=== PATIENT | male | born 2000 | race Caucasian/White ===

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

== ENCOUNTER 2022-10-22 10:45 | Inpatient (IN) ==
[2022-10-22] MEDS ORDERED: NS 0.9% 1000 ml BAG 1,000 ML IV ONE ×3 (10:54→21:05)
[2022-10-22] MEDS ORDERED: Ondansetron 4 mg VIAL 2 MG/ML 2 ml VIAL IV ONE ×2 (11:40→21:21)
[2022-10-22 11:58] LABS: Venous Bicarbonate HCO3 26.4 mmol/L (24-28)
[2022-10-22 12:04] LABS: ABS Basophils 0.1 10^3/ul (0-0.2); ABS Eosinophils 0.1 10^3/ul (0-0.6); ABS Lymphocytes 2.8 10^3/ul (1.0-4.8); ABS Monocytes 0.6 10^3/ul (0-0.8); ABS Neutrophils 5.9 10^3/ul (1.5-7.7); Eosinophil % 1.4 %; Hematocrit 48 % (42-52); Hemoglobin 15.7 g/dL (14.0-18.0); Lymphocyte % 29.4 %; Mean Corpuscular HGB Conc 33 g/dL (31-36); Mean Corpuscular Hemoglobin 29 pg (27-31); Mean Corpuscular Volume 89 fL (80-94); Mean Platelet Volume 7.7 fL (7.4-10.4); Nucleated Red Blood Cells % 0.1; Platelet Count 495 10^3/uL (150-450); Red Blood Count 5.34 10^6 /uL (4.18-5.48); Red Cell Distribution Width 13 % (10-15); White Blood Count 9.5 10^3/uL (3.5-10.8)
[2022-10-22 12:25] LABS: Anion Gap 12 mmol/L (2-11); Blood Urea Nitrogen 19 mg/dL (6-24); CO2 Carbon Dioxide 26 mmol/L (22-32); Calcium 10.4 mg/dL (8.6-10.3); Chloride 101 mmol/L (101-111); Glucose 96 mg/dL (70-100); Lipase 12 U/L (11.0-82.0); Potassium 3.8 mmol/L (3.5-5.0); Sodium 139 mmol/L (135-145); eGFR CKD-EPI 132.5 (>60)
[2022-10-22] MEDS ORDERED: Prochlorperazine 5 mg/ml 2 ml VIAL (10 mg) IV ONE (12:26)
[2022-10-22] MEDS ORDERED: Metoclopramide 5 MG/ML VIAL (10 mg) IV ONE ×2 (15:02→20:35)
[2022-10-22] MEDS ORDERED: Iodixanol (CONTRAST) 320 MG/ML 100 ML SDV IV ONE (17:20)
[2022-10-22 19:41] LABS: Urine Appearance Clear; Urine Bilirubin Negative (Negative); Urine Blood Negative (Negative); Urine Color Straw; Urine Glucose 3+(>=500 mg/dL) (Negative); Urine Ketones 2+ (Negative); Urine Nitrite Negative (Negative); Urine Protein Negative (Negative); Urine Specific Gravity 1.043 (1.002-1.030); Urine Urobilinogen Negative (Negative)
[2022-10-22] MEDS ORDERED: Dextrose 50% Syringe 50 ml 25 GM/50 ML SYRINGE IV PUSH PRN ×2 (20:52→21:20)
[2022-10-22] MEDS ORDERED: Morphine 4 MG/ML VIAL (1 ml) IV ONE (21:04)
[2022-10-22 21:17] LABS: ALT 15 U/L (7-52); AST 15 U/L (13-39); Albumin 4.7 g/dL (3.2-5.2); Albumin/Globulin Ratio 1.6 (1-3); Alcohol, S < 13 mg/dL (<13); Alkaline Phosphatase 99 U/L (35-149); Indirect Bilirubin 0.9 mg/dL (0.3-1.0); Total Protein 7.7 g/dL (6.4-8.9)
[2022-10-22 21:45] LABS: Urine Benzodiazepine Screen None Detected (None Detect); Urine Cannabinoids Screen Presumptive Positive (None Detect); Urine Opiates Screen None Detected (None Detect)
[2022-10-22] MEDS ORDERED: Insulin GLARGINE 100 un/ml 10 ml VIAL SUBCUT SCH (22:00)
[2022-10-22] MEDS ORDERED: Scopolamine 1 mg/72hr PATCH TRANSDERM SCH (22:00)
[2022-10-22] MEDS: Prochlorperazine 5 mg/ml 2 ml VIAL (10 mg) IV PRN (23:42)
[2022-10-22] MEDS: Acetaminophen IV 1 GM/100ML 1,000 MG/100 ML BAG IV PRN (23:43)
[2022-10-23] MEDS: Ondansetron 4 mg VIAL 2 MG/ML 2 ml VIAL IV PRN ×4 (02:48→21:23)
[2022-10-23] MEDS ORDERED: Morphine 2 MG/ML SYRINGE IV PRN (03:48)
[2022-10-23] MEDS: NS 0.9% 1000 ml BAG 1,000 ML IV SCH ×2 (04:02→14:28)
[2022-10-23] MEDS: Prochlorperazine 5 mg/ml 2 ml VIAL (10 mg) IV PRN ×2 (06:14→16:49)
[2022-10-23] MEDS ORDERED: NS 0.9% 1000 ml BAG 1,000 ML IV ONE (06:23)
[2022-10-23] MEDS: Acetaminophen IV 1 GM/100ML 1,000 MG/100 ML BAG IV PRN ×2 (08:04→16:49)
[2022-10-23] MEDS ORDERED: Lorazepam PYXIS KEY PRN ×2 (08:29→09:54)
[2022-10-23] MEDS ORDERED: LORazepam 2 mg VIAL 1 ml IV PUSH PRN (08:29)
[2022-10-23] MEDS: Metoclopramide 5 MG/ML VIAL (10 mg) IV PRN ×2 (08:38→19:31)
[2022-10-23] MEDS ORDERED: LORazepam 2 mg VIAL 1 ml IV PUSH ONE (09:54)
[2022-10-23] MEDS ORDERED: Iohexol 350 (CONTRAST) 500 ML MDV IV ONE (10:10)
[2022-10-23 10:16] LABS: Hematocrit 48 % (42-52); Hemoglobin 14.8 g/dL (14.0-18.0); Mean Corpuscular HGB Conc 31 g/dL (31-36); Mean Corpuscular Hemoglobin 30 pg (27-31); Mean Corpuscular Volume 96 fL (80-94); Mean Platelet Volume 7.7 fL (7.4-10.4); Platelet Count 509 10^3/uL (150-450); Red Blood Count 4.98 10^6 /uL (4.18-5.48); Red Cell Distribution Width 14 % (10-15); White Blood Count 34.2 10^3/uL (3.5-10.8)
[2022-10-23 10:51] LABS: Blood Urea Nitrogen 20 mg/dL (6-24); Calcium 9.5 mg/dL (8.6-10.3); Chloride 98 mmol/L (101-111); Magnesium 2.3 mg/dL (1.9-2.7); Sodium 134 mmol/L (135-145); eGFR CKD-EPI 75.5 (>60)
[2022-10-23 11:11] LABS: CO2 Carbon Dioxide < 7 mmol/L (22-32); Glucose 545 mg/dL (70-100); Potassium 6.2 mmol/L (3.5-5.0)
[2022-10-23] MEDS ORDERED: Dextrose 50% Syringe 50 ml 25 GM/50 ML SYRINGE IV PUSH PRN (11:17)
[2022-10-23 11:30] LABS: ABS Basophils 0.2 10^3/ul (0-0.2); ABS Lymphocytes 3.3 10^3/ul (1.0-4.8); ABS Monocytes 2.2 10^3/ul (0-0.8); ABS Neutrophils 28.5 10^3/ul (1.5-7.7); Lymphocyte % 9.8 %
[2022-10-23 11:43] LABS: High Sensitivity Troponin 1 Hr 7 pg/mL (<20)
[2022-10-23] MEDS ORDERED: Insulin Infusion 100unit/100mL 100 UNIT/100 ML BAG IV SCH ×3 (12:00→18:45)
[2022-10-23 14:29] LABS: Calcium 9.5 mg/dL (8.6-10.3); Potassium 4.9 mmol/L (3.5-5.0); eGFR CKD-EPI 86.8 (>60)
[2022-10-23] MEDS ORDERED: D5W 1/2 NS 40 Meq KCL 1000 ml 1,000 ML IV SCH (15:00)
[2022-10-23] MEDS: D5LR 20 MEQ KCL 1000 ml BAG 1,000 ML IV SCH (16:51)
[2022-10-23 16:56] LABS: Calcium 9.7 mg/dL (8.6-10.3); Potassium 4.6 mmol/L (3.5-5.0); eGFR CKD-EPI 98.4 (>60)
[2022-10-23 18:59] LABS: Blood Urea Nitrogen 17 mg/dL (6-24); Calcium 9.3 mg/dL (8.6-10.3); Chloride 110 mmol/L (101-111); Glucose 230 mg/dL (70-100); Sodium 138 mmol/L (135-145); eGFR CKD-EPI 110.5 (>60)
[2022-10-23 19:03] LABS: Anion Gap 16 mmol/L (2-11); CO2 Carbon Dioxide 12 mmol/L (22-32)
[2022-10-23 21:11] LABS: Calcium 9.3 mg/dL (8.6-10.3); Potassium 4.2 mmol/L (3.5-5.0)
[2022-10-23 21:17] LABS: eGFR CKD-EPI 116.1 (>60)
[2022-10-23 23:01] LABS: Calcium 9.5 mg/dL (8.6-10.3); Potassium 3.9 mmol/L (3.5-5.0); eGFR CKD-EPI 124.7 (>60)
[2022-10-24] MEDS: Prochlorperazine 5 mg/ml 2 ml VIAL (10 mg) IV PRN ×4 (00:15→21:12)
[2022-10-24] MEDS: Acetaminophen IV 1 GM/100ML 1,000 MG/100 ML BAG IV PRN ×2 (00:15→19:11)
[2022-10-24] MEDS: D5LR 20 MEQ KCL 1000 ml BAG 1,000 ML IV SCH (00:19)
[2022-10-24 00:58] LABS: Calcium 9.3 mg/dL (8.6-10.3); Potassium 3.8 mmol/L (3.5-5.0); eGFR CKD-EPI 126.9 (>60)
[2022-10-24] MEDS ORDERED: Dextrose 50% Syringe 50 ml 25 GM/50 ML SYRINGE IV PUSH PRN ×2 (01:06→07:10)
[2022-10-24] MEDS ORDERED: Insulin GLARGINE 100 un/ml 10 ml VIAL SUBCUT ONE (01:06)
[2022-10-24] MEDS ORDERED: Lactated Ringers 1000 ml BAG 1,000 ML IV SCH (02:00)
[2022-10-24] MEDS: D5LR 1000 ml BAG 1,000 ML IV SCH ×3 (03:19→17:28)
[2022-10-24] MEDS: Metoclopramide 5 MG/ML VIAL (10 mg) IV PRN ×3 (03:35→20:30)
[2022-10-24 04:17] LABS: ABS Basophils 0.1 10^3/ul (0-0.2); ABS Lymphocytes 1.4 10^3/ul (1.0-4.8); ABS Monocytes 1.4 10^3/ul (0-0.8); ABS Neutrophils 15.4 10^3/ul (1.5-7.7); Eosinophil % 0.3 %; Hematocrit 38 % (42-52); Hemoglobin 12.7 g/dL (14.0-18.0); Lymphocyte % 7.8 %; Mean Corpuscular HGB Conc 33 g/dL (31-36); Mean Corpuscular Hemoglobin 30 pg (27-31); Mean Corpuscular Volume 89 fL (80-94); Platelet Count 398 10^3/uL (150-450); Red Blood Count 4.31 10^6 /uL (4.18-5.48); Red Cell Distribution Width 13 % (10-15); White Blood Count 18.4 10^3/uL (3.5-10.8)
[2022-10-24 04:50] LABS: Anion Gap 7 mmol/L (2-11); Blood Urea Nitrogen 13 mg/dL (6-24); CO2 Carbon Dioxide 21 mmol/L (22-32); Calcium 8.9 mg/dL (8.6-10.3); Chloride 109 mmol/L (101-111); Glucose 155 mg/dL (70-100); Potassium 3.4 mmol/L (3.5-5.0); Sodium 137 mmol/L (135-145); eGFR CKD-EPI 131.4 (>60)
[2022-10-24] MEDS: Ondansetron 4 mg VIAL 2 MG/ML 2 ml VIAL IV PRN ×3 (05:51→18:35)
[2022-10-24 07:51] LABS: Amylase 387 U/L (29-103)
[2022-10-24 08:05] LABS: ALT 19 U/L (7-52); AST 17 U/L (13-39); Albumin 3.9 g/dL (3.2-5.2); Albumin/Globulin Ratio 1.6 (1-3); Alkaline Phosphatase 79 U/L (35-149); Globulin 2.4 g/dL (2-4); Lipase < 10 U/L (11.0-82.0); Total Protein 6.3 g/dL (6.4-8.9)
[2022-10-24] MEDS: KCL 20 MEQ/100 ML IVPREMIX 20 MEQ/100 ML BAG IV SCH ×4 (09:52→23:12)
[2022-10-24 13:11] LABS: Calcium 8.9 mg/dL (8.6-10.3); Potassium 3.6 mmol/L (3.5-5.0); eGFR CKD-EPI 137.3 (>60)
[2022-10-24] MEDS: Pantoprazole VIAL 40 MG VIAL IV SCH (14:47)
[2022-10-24 20:52] LABS: Calcium 7.3 mg/dL (8.6-10.3); eGFR CKD-EPI 149.7 (>60)
[2022-10-24 20:57] LABS: Potassium 2.7 mmol/L (3.5-5.0)
[2022-10-24] MEDS ORDERED: Potassium Chloride LIQUID 20 MEQ/15 ML LIQUID PO ONE (20:58)
[2022-10-24 21:40] LABS: Magnesium 1.4 mg/dL (1.9-2.7)
[2022-10-24] MEDS ORDERED: D5W 1000 ml BAG 1,000 ML IV SCH (22:00)
[2022-10-24] MEDS: Potassium Chloride IV 40 MEQ in Lactated Ringers 1000 ml BAG 1,000 ML IVPB SCH (22:03)
[2022-10-24] MEDS ORDERED: Magnesium Sulfate IV 3 GM in NS 0.9% 100 ml BAG 100 ML IVPB ONE (22:06)
[2022-10-24] MEDS ORDERED: Insulin GLARGINE 100 un/ml 10 ml VIAL SUBCUT SCH (23:45)
[2022-10-25] MEDS: Ondansetron 4 mg VIAL 2 MG/ML 2 ml VIAL IV PRN (01:25)
[2022-10-25 04:20] LABS: Hematocrit 35 % (42-52); Hemoglobin 11.6 g/dL (14.0-18.0); Mean Corpuscular HGB Conc 33 g/dL (31-36); Mean Corpuscular Hemoglobin 30 pg (27-31); Mean Corpuscular Volume 89 fL (80-94); Mean Platelet Volume 7.1 fL (7.4-10.4); Platelet Count 332 10^3/uL (150-450); Red Blood Count 3.94 10^6 /uL (4.18-5.48); Red Cell Distribution Width 13 % (10-15); White Blood Count 12.3 10^3/uL (3.5-10.8)
[2022-10-25] MEDS ORDERED: Lorazepam PYXIS KEY PRN (04:21)
[2022-10-25] MEDS ORDERED: LORazepam 2 mg VIAL 1 ml IV PUSH PRN (04:21)
[2022-10-25] MEDS: Prochlorperazine 5 mg/ml 2 ml VIAL (10 mg) IV PRN (04:22)
[2022-10-25 05:01] LABS: Calcium 8.8 mg/dL (8.6-10.3); Magnesium 2.9 mg/dL (1.9-2.7); Potassium 3.4 mmol/L (3.5-5.0); eGFR CKD-EPI 142.9 (>60)
[2022-10-25] MEDS ORDERED: Lorazepam PYXIS KEY ONE (06:23)
[2022-10-25] MEDS ORDERED: LORazepam 2 mg VIAL 1 ml ONE (06:24)
[2022-10-25] MEDS ORDERED: Potassium Chloride LIQUID 20 MEQ/15 ML LIQUID PO ONE (07:11)
[2022-10-25] MEDS: Metoclopramide 5 MG/ML VIAL (10 mg) IV PRN (08:00)
[2022-10-25] MEDS: Pantoprazole VIAL 40 MG VIAL IV SCH (08:00)
[2022-10-25] MEDS: Potassium Chloride IV 40 MEQ in Lactated Ringers 1000 ml BAG 1,000 ML IVPB SCH (09:43)
[2022-10-25 10:23] VITALS: BP 137/91
== END 2022-10-25 11:28 | disposition left against medical advice (07) | DRG 420 ==
LOC: ED 10:45 → EDHOLD 10:45 → MED 23:28 → ICU 10-23 10:26
PROVIDERS: ADMIT Internal Medicine; ATTEND Internal Medicine

== ENCOUNTER 2022-12-05 08:32 | Inpatient (IN) ==
[2022-12-05] MEDS ORDERED: Famotidine IV 10 MG/ML 2 ml VIAL (20 mg) IV SLOW PU ONE ×2 (09:07)
[2022-12-05] MEDS ORDERED: Ondansetron 4 mg VIAL 2 MG/ML 2 ml VIAL IV ONE (09:08)
[2022-12-05] MEDS ORDERED: Morphine 4 MG/ML VIAL (1 ml) IV ONE (09:14)
[2022-12-05 09:27] LABS: ABS Lymphocytes 1.6 10^3/ul (1.0-4.8); ABS Monocytes 0.6 10^3/ul (0-0.8); ABS Neutrophils 7.5 10^3/ul (1.5-7.7); Hematocrit 46 % (42-52); Hemoglobin 15.1 g/dL (14.0-18.0); Lymphocyte % 16.8 %; Mean Corpuscular HGB Conc 33 g/dL (31-36); Mean Corpuscular Hemoglobin 30 pg (27-31); Mean Corpuscular Volume 90 fL (80-94); Mean Platelet Volume 7.4 fL (7.4-10.4); Platelet Count 420 10^3/uL (150-450); Red Blood Count 5.12 10^6 /uL (4.18-5.48); Red Cell Distribution Width 13 % (10-15); Venous Bicarbonate HCO3 14.8 mmol/L (24-28); White Blood Count 9.8 10^3/uL (3.5-10.8)
[2022-12-05] MEDS: NORMOSOL-R pH 7.4 1000 mL BAG 1,000 ML IV SCH ×2 (09:49→10:40)
[2022-12-05] MEDS ORDERED: NORMOSOL-R pH 7.4 1000 mL BAG 1,000 ML IV SCH (10:00)
[2022-12-05 10:04] LABS: Albumin 4.5 g/dL (3.2-5.2); Chloride 99 mmol/L (101-111); Magnesium 1.6 mg/dL (1.9-2.7); Sodium 136 mmol/L (135-145)
[2022-12-05 10:10] LABS: ALT 10 U/L (7-52); Albumin/Globulin Ratio 1.6 (1-3); Alkaline Phosphatase 82 U/L (35-149); Blood Urea Nitrogen 14 mg/dL (6-24); Creatine Kinase 49 U/L (10-223); Globulin 2.9 g/dL (2-4); Glucose 251 mg/dL (70-100); Lipase < 10 U/L (11.0-82.0); Total Protein 7.4 g/dL (6.4-8.9); eGFR CKD-EPI 126.9 (>60)
[2022-12-05 10:16] LABS: Anion Gap 25 mmol/L (2-11); CO2 Carbon Dioxide 12 mmol/L (22-32)
[2022-12-05 10:38] LABS: PO2 Arterial 143 mmHg (80-100)
[2022-12-05 10:45] LABS: PCO2 Arterial <20 mmHg (35-45)
[2022-12-05 11:24] LABS: Calcium 7.9 mg/dL (8.6-10.3); Chloride 101 mmol/L (101-111); Sodium 135 mmol/L (135-145)
[2022-12-05 11:29] LABS: Blood Urea Nitrogen 14 mg/dL (6-24); Glucose 222 mg/dL (70-100); eGFR CKD-EPI 134.2 (>60)
[2022-12-05 11:44] LABS: Potassium, Whole Blood 4.1 mmol/L (3.4-4.5)
[2022-12-05] MEDS ORDERED: Iodixanol (CONTRAST) 320 MG/ML 100 ML SDV IV ONE (11:46)
[2022-12-05 11:48] LABS: Anion Gap 21 mmol/L (2-11); CO2 Carbon Dioxide 13 mmol/L (22-32)
[2022-12-05 11:54] LABS: Urine Appearance Clear; Urine Bilirubin Negative (Negative); Urine Blood Negative (Negative); Urine Color Straw; Urine Glucose 3+(>=500 mg/dL) (Negative); Urine Ketones 2+ (Negative); Urine Nitrite Negative (Negative); Urine Protein Negative (Negative); Urine Specific Gravity 1.025 (1.002-1.030); Urine Urobilinogen Negative (Negative)
[2022-12-05] MEDS ORDERED: Magnesium Sulfate 2 gm BAG 2 GM/50 ML BAG IVPB ONE (12:16)
[2022-12-05] MEDS ORDERED: Metoclopramide 5 MG/ML VIAL (10 mg) IV SLOW PU ONE (12:19)
[2022-12-05] MEDS ORDERED: D5W 1/2 NS 1000 ml BAG 1,000 ML IV SCH ×2 (13:00→14:00)
[2022-12-05] MEDS ORDERED: Dextrose 50% Syringe 50 ml 25 GM/50 ML SYRINGE IV PUSH PRN (13:05)
[2022-12-05 13:16] LABS: TSH Ultra Thyroid Stim Horm 0.54 mcIU/mL (0.34-5.60)
[2022-12-05] MEDS ORDERED: D5W 1/2 NS KCl 20 meq 1000 ml 1,000 ML IV SCH (13:59)
[2022-12-05] MEDS ORDERED: Insulin Infusion 100unit/100mL 100 UNIT/100 ML BAG IV SCH ×2 (14:00→17:30)
[2022-12-05] MEDS ORDERED: Morphine 2 MG/ML SYRINGE IV PRN (16:12)
[2022-12-05] MEDS ORDERED: Ondansetron 4 mg VIAL 2 MG/ML 2 ml VIAL ONE (16:48)
[2022-12-05] MEDS ORDERED: Enoxaparin 40 MG/0.4 ML SYR ONE (16:49)
[2022-12-05] MEDS ORDERED: Morphine 2 MG/ML SYRINGE ONE (16:49)
[2022-12-05] MEDS: Ondansetron 4 mg VIAL 2 MG/ML 2 ml VIAL IV PRN ×2 (16:50→21:53)
[2022-12-05] MEDS: Enoxaparin 40 MG/0.4 ML SYR SUBCUT SCH (16:50)
[2022-12-05] MEDS ORDERED: Sodium Chloride CONC. 4 MEQ/ML 77 MEQ in D10W 1000 ml BAG 1,000 ML IV SCH (17:00)
[2022-12-05 17:14] LABS: Calcium 8.4 mg/dL (8.6-10.3); Magnesium 2.2 mg/dL (1.9-2.7); Phosphorus 3.2 mg/dL (2.5-5.0); Potassium 4.2 mmol/L (3.5-5.0); eGFR CKD-EPI 134.2 (>60)
[2022-12-05] MEDS: D5W 1/2 NS KCl 20 meq 1000 ml 1,000 ML IV SCH ×2 (17:24→21:45)
[2022-12-05 21:01] LABS: Calcium 7.2 mg/dL (8.6-10.3); Magnesium 1.5 mg/dL (1.9-2.7); Potassium 3.3 mmol/L (3.5-5.0)
[2022-12-05] MEDS ORDERED: Magnesium Sulfate IV 3 GM in NS 0.9% 100 ml BAG 100 ML IVPB ONE (21:03)
[2022-12-05] MEDS ORDERED: Insulin GLARGINE 100 un/ml 10 ml VIAL SUBCUT ONE (21:04)
[2022-12-05 21:06] LABS: Phosphorus 1.9 mg/dL (2.5-5.0); eGFR CKD-EPI 141.4 (>60)
[2022-12-05] MEDS ORDERED: Potassium Chloride LIQUID 20 MEQ/15 ML LIQUID PO ONE (21:09)
[2022-12-05] MEDS ORDERED: KCL 20 MEQ/100 ML IVPREMIX 20 MEQ/100 ML BAG IV ONE (21:10)
[2022-12-06 01:02] LABS: Calcium 7.8 mg/dL (8.6-10.3); Potassium 3.9 mmol/L (3.5-5.0)
[2022-12-06 01:08] LABS: Phosphorus 1.9 mg/dL (2.5-5.0)
[2022-12-06] MEDS: NORMOSOL-R pH 7.4 1000 mL BAG 1,000 ML IV SCH (01:22)
[2022-12-06] MEDS ORDERED: NORMOSOL-R pH 7.4 1000 mL BAG 1,000 ML IV SCH (02:00)
[2022-12-06 04:22] LABS: Hematocrit 40 % (42-52); Hemoglobin 13.1 g/dL (14.0-18.0); Mean Corpuscular HGB Conc 33 g/dL (31-36); Mean Corpuscular Hemoglobin 29 pg (27-31); Mean Corpuscular Volume 89 fL (80-94); Mean Platelet Volume 6.9 fL (7.4-10.4); Platelet Count 371 10^3/uL (150-450); Red Blood Count 4.47 10^6 /uL (4.18-5.48); Red Cell Distribution Width 13 % (10-15); Venous Bicarbonate HCO3 23.4 mmol/L (24-28); White Blood Count 8.4 10^3/uL (3.5-10.8)
[2022-12-06 05:00] LABS: Calcium 7.9 mg/dL (8.6-10.3); HDL Cholesterol 40.5 mg/dL; Magnesium 1.9 mg/dL (1.9-2.7); Potassium 3.8 mmol/L (3.5-5.0); eGFR CKD-EPI 142.2 (>60)
[2022-12-06 05:23] LABS: ABS Lymphocytes 1.9 10^3/ul (1.0-4.8); ABS Monocytes 0.9 10^3/ul (0-0.8); ABS Neutrophils 5.5 10^3/ul (1.5-7.7); Eosinophil % 0.5 %; Lymphocyte % 22.9 %; Nucleated Red Blood Cells % 0.1
[2022-12-06] MEDS: Ondansetron 4 mg VIAL 2 MG/ML 2 ml VIAL IV PRN ×2 (06:03→13:22)
[2022-12-06] MEDS ORDERED: Magnesium Sulfate 2 gm BAG 2 GM/50 ML BAG IVPB ONE (06:33)
[2022-12-06] MEDS ORDERED: Potassium Chloride LIQUID 20 MEQ/15 ML LIQUID PO ONE (06:33)
[2022-12-06] MEDS: Metoclopramide 5 MG/ML VIAL (10 mg) IV PRN ×2 (07:58→14:49)
[2022-12-06] MEDS ORDERED: Polyethylene Glycol 3350 17 GM PACKET PO PRN (08:08)
[2022-12-06] MEDS ORDERED: Magnesium Hydroxide LIQ 30 ML UDC PO PRN (08:08)
[2022-12-06] MEDS: Magnesium Hydroxide LIQ 30 ML UDC PO SCH ×2 (09:07→20:04)
[2022-12-06] MEDS: Acetaminophen IV 1 GM/100ML 1,000 MG/100 ML BAG IV PRN ×2 (09:34→17:08)
[2022-12-06] MEDS ORDERED: Lactated Ringers 1000 ml BAG 1,000 ML IV SCH (13:00)
[2022-12-06] MEDS ORDERED: Famotidine IV 10 MG/ML 2 ml VIAL (20 mg) IV SLOW PU ONE (15:12)
[2022-12-06 16:05] LABS: Calcium 9.4 mg/dL (8.6-10.3); Magnesium 2.1 mg/dL (1.9-2.7); eGFR CKD-EPI 137.9 (>60)
[2022-12-06] MEDS: Enoxaparin 40 MG/0.4 ML SYR SUBCUT SCH (16:10)
[2022-12-06] MEDS ORDERED: NS 0.9% 500 ml BAG 500 ML IV ONE (16:23)
[2022-12-06 17:01] LABS: High Sensitivity Troponin 1 Hr 3 pg/mL (<20)
[2022-12-06] MEDS ORDERED: Morphine 2 MG/ML SYRINGE IV PRN (19:29)
[2022-12-06] MEDS ORDERED: Senna TAB 8.6 mg TAB PO SCH (21:00)
[2022-12-07] MEDS: Metoclopramide 5 MG/ML VIAL (10 mg) IV PRN ×2 (00:11→08:23)
[2022-12-07] MEDS: Acetaminophen IV 1 GM/100ML 1,000 MG/100 ML BAG IV PRN (02:56)
[2022-12-07 06:36] LABS: ABS Basophils 0.1 10^3/ul (0-0.2); ABS Eosinophils 0.1 10^3/ul (0-0.6); ABS Lymphocytes 2.5 10^3/ul (1.0-4.8); ABS Monocytes 0.7 10^3/ul (0-0.8); ABS Neutrophils 3.4 10^3/ul (1.5-7.7); Eosinophil % 0.8 %; Hematocrit 43 % (42-52); Hemoglobin 14.3 g/dL (14.0-18.0); Lymphocyte % 36.9 %; Mean Corpuscular HGB Conc 34 g/dL (31-36); Mean Corpuscular Hemoglobin 30 pg (27-31); Mean Corpuscular Volume 89 fL (80-94); Mean Platelet Volume 7.4 fL (7.4-10.4); Nucleated Red Blood Cells % 0.1; Platelet Count 395 10^3/uL (150-450); Red Blood Count 4.82 10^6 /uL (4.18-5.48); Red Cell Distribution Width 13 % (10-15); White Blood Count 6.7 10^3/uL (3.5-10.8)
[2022-12-07 06:59] LABS: Calcium 8.8 mg/dL (8.6-10.3); Magnesium 1.8 mg/dL (1.9-2.7); Potassium 3.7 mmol/L (3.5-5.0); eGFR CKD-EPI 141.4 (>60)
[2022-12-07] MEDS ORDERED: Magnesium Sulfate IV 1GM/100ML 1 GM/100 ML BAG IV ONE (07:28)
[2022-12-07] MEDS: Magnesium Hydroxide LIQ 30 ML UDC PO SCH (08:23)
[2022-12-07] MEDS ORDERED: Morphine 2 MG/ML SYRINGE IV ONE (08:40)
[2022-12-07] MEDS ORDERED: Pantoprazole VIAL 40 MG VIAL IV SCH (09:00)
[2022-12-07 10:49] LABS: Urine Appearance Clear; Urine Bilirubin Negative (Negative); Urine Blood Negative (Negative); Urine Color Yellow; Urine Glucose 3+(>=500 mg/dL) (Negative); Urine Ketones 2+ (Negative); Urine Nitrite Negative (Negative); Urine Protein Negative (Negative); Urine Specific Gravity 1.014 (1.002-1.030); Urine Urobilinogen Negative (Negative)
[2022-12-07] MEDS ORDERED: Lactated Ringers 1000 ml BAG 1,000 ML IV ONE (11:22)
[2022-12-07 11:29] VITALS: BP 151/88
[2022-12-07 12:04] LABS: Venous Bicarbonate HCO3 22.8 mmol/L (24-28)
== END 2022-12-07 15:00 | disposition home or self-care (01) | DRG 420 ==
LOC: ED 08:32 → EDHOLD 12:23 → SUATTDRO 12:23 → EDHOLD 14:54 → ICU 16:02 → MED 12-06 06:40
PROVIDERS: ADMIT Internal Medicine Critical Care Medicine; ATTEND Student in an Organized Health Care Education/Training Program

== ENCOUNTER 2023-04-26 05:22 | Inpatient (IN) ==
[2023-04-26] MEDS ORDERED: Lactated Ringers 1000 ml BAG 1,000 ML IV ONE (05:25)
[2023-04-26] MEDS ORDERED: Ondansetron 4 mg VIAL 2 MG/ML 2 ml VIAL IV ONE (05:29)
[2023-04-26] MEDS ORDERED: Morphine 4 MG/ML VIAL (1 ml) IV ONE (05:29)
[2023-04-26 05:46] LABS: ABS Basophils 0.1 10^3/uL (0.0-0.1); ABS Eosinophils 0.1 10^3/uL (0.0-0.5); ABS Lymphocytes 2.7 10^3/uL (1.0-4.8); ABS Monocytes 0.4 10^3/uL (0.0-1.1); ABS Neutrophils 8.2 10^3/uL (1.5-7.6); ABS Nucleated RBC 0.01 10^3/ul; Eosinophil % 0.5 %; Hematocrit 44.7 % (38-53); Hemoglobin 14.8 g/dL (13.2-16.3); Lymphocyte % 23.3 %; Mean Corpuscular Hemoglobin 29.4 pg (27-33); Mean Corpuscular Hgb Conc 33.2 g/dL (31-36); Mean Corpuscular Volume 88.6 fL (80-97); Mean Platelet Volume 7.6 fL (7.5-11.2); Nucleated Red Blood Cells % 0.1 /100 WBC (0.0-0.4); Platelet Count 495 10^3/uL (150-450); Red Blood Count 5.04 10^6/uL (4.06-5.63); Red Cell Distribution Width 14.3 % (12-17); Venous Bicarbonate HCO3 20.2 mmol/L (24-28); White Blood Count 11.4 10^3/uL (3.6-10.2)
[2023-04-26 06:33] LABS: Albumin 4.4 g/dL (3.2-5.2); Albumin/Globulin Ratio 1.6 (1-3); Calcium 10.2 mg/dL (8.6-10.3); Creatinine, Serum 0.83 mg/dL (0.67-1.17); Globulin 2.8 g/dL (2-4); Magnesium 1.7 mg/dL (1.9-2.7); Potassium 3.9 mmol/L (3.5-5.0); Total Bilirubin 2.4 mg/dL (0.2-1.0); Total Protein 7.2 g/dL (6.4-8.9); eGFR CKD-EPI 126.1 (>60)
[2023-04-26] MEDS ORDERED: Magnesium Sulfate 2 gm BAG 2 GM/50 ML BAG IVPB ONE ×2 (06:34→17:44)
[2023-04-26] MEDS ORDERED: Dextrose 50% Syringe 50 ml 25 GM/50 ML SYRINGE IV PUSH PRN ×2 (06:35→07:42)
[2023-04-26] MEDS ORDERED: Insulin Infusion 100unit/100mL 100 UNIT/100 ML BAG IV SCH ×3 (07:00→11:06)
[2023-04-26] MEDS ORDERED: Lactated Ringers 1000 ml BAG 1,000 ML IV SCH (07:00)
[2023-04-26] MEDS ORDERED: Potassium Chloride IV 20 MEQ in Lactated Ringers 1000 ml BAG 1,000 ML IVPB ONE (08:00)
[2023-04-26 10:05] LABS: Calcium 9.4 mg/dL (8.6-10.3); Creatinine, Serum 0.7 mg/dL (0.67-1.17); Magnesium 2.6 mg/dL (1.9-2.7); Phosphorus 3.8 mg/dL (2.5-5.0); eGFR CKD-EPI 132.8 (>60)
[2023-04-26 10:23] LABS: Urine Appearance Clear; Urine Bilirubin Negative (Negative); Urine Blood Negative (Negative); Urine Color Yellow; Urine Glucose 3+(>=500 mg/dL) (Negative); Urine Ketones 2+ (Negative); Urine Nitrite Negative (Negative); Urine Protein Negative (Negative); Urine Specific Gravity 1.028 (1.002-1.030); Urine Urobilinogen Negative (Negative)
[2023-04-26] MEDS ORDERED: D5LR 20 MEQ KCL 1000 ml BAG 1,000 ML IV SCH (11:00)
[2023-04-26] MEDS ORDERED: D5LR 1000 ml BAG 1,000 ML IV SCH (11:00)
[2023-04-26 13:40] LABS: Blood Urea Nitrogen 16 mg/dL (6-24); CO2 Carbon Dioxide 22 mmol/L (22-32); Calcium 8.7 mg/dL (8.6-10.3); Chloride 103 mmol/L (101-111); Creatinine, Serum 0.57 mg/dL (0.67-1.17); Glucose 226 mg/dL (70-100); Magnesium 1.9 mg/dL (1.9-2.7); Sodium 134 mmol/L (135-145); eGFR CKD-EPI 141.3 (>60)
[2023-04-26 13:54] LABS: Anion Gap 9 mmol/L (2-16)
[2023-04-26] MEDS ORDERED: KCL IVPB SCH (15:00)
[2023-04-26] MEDS ORDERED: LR IVPB SCH (15:00)
[2023-04-26] MEDS ORDERED: Lidocaine PATCH 5% PATCH TRANSDERM ONE (16:52)
[2023-04-26 17:36] LABS: Calcium 8.9 mg/dL (8.6-10.3); Creatinine, Serum 0.53 mg/dL (0.67-1.17); Magnesium 1.8 mg/dL (1.9-2.7); Phosphorus 3.6 mg/dL (2.5-5.0); Potassium 4.4 mmol/L (3.5-5.0); eGFR CKD-EPI 144.4 (>60)
[2023-04-26] MEDS ORDERED: Morphine 2 MG/ML SYRINGE ONE (18:27)
[2023-04-26] MEDS: Lactated Ringers 1000 ml BAG 1,000 ML IV SCH (20:17)
[2023-04-26 22:17] LABS: Calcium 8.6 mg/dL (8.6-10.3); Creatinine, Serum 0.62 mg/dL (0.67-1.17); Phosphorus 3.2 mg/dL (2.5-5.0); Potassium 4.7 mmol/L (3.5-5.0); eGFR CKD-EPI 137.7 (>60)
[2023-04-27] MEDS: Lactated Ringers 1000 ml BAG 1,000 ML IV SCH ×3 (01:00→10:45)
[2023-04-27 01:20] LABS: Calcium 8.8 mg/dL (8.6-10.3); Creatinine, Serum 0.62 mg/dL (0.67-1.17); Magnesium 1.8 mg/dL (1.9-2.7); Phosphorus 2.9 mg/dL (2.5-5.0); Potassium 4.3 mmol/L (3.5-5.0); eGFR CKD-EPI 137.7 (>60)
[2023-04-27] MEDS ORDERED: Ondansetron 4 mg VIAL 2 MG/ML 2 ml VIAL IV PRN ×2 (01:25→01:31)
[2023-04-27] MEDS ORDERED: Ondansetron 4 mg VIAL 2 MG/ML 2 ml VIAL ONE (01:34)
[2023-04-27 04:57] LABS: Hemoglobin 13.7 g/dL (13.2-16.3); Mean Corpuscular Hemoglobin 30.1 pg (27-33); Mean Corpuscular Hgb Conc 34.2 g/dL (31-36); Mean Platelet Volume 6.9 fL (7.5-11.2); Platelet Count 410 10^3/uL (150-450); Red Blood Count 4.54 10^6/uL (4.06-5.63); Red Cell Distribution Width 13.9 % (12-17); White Blood Count 9.4 10^3/uL (3.6-10.2)
[2023-04-27 05:39] LABS: Calcium 8.8 mg/dL (8.6-10.3); Creatinine, Serum 0.58 mg/dL (0.67-1.17); Magnesium 1.7 mg/dL (1.9-2.7); Phosphorus 3.3 mg/dL (2.5-5.0); Potassium 4.5 mmol/L (3.5-5.0); eGFR CKD-EPI 140.5 (>60)
[2023-04-27] MEDS ORDERED: Dextrose 50% Syringe 50 ml 25 GM/50 ML SYRINGE IV PUSH PRN ×2 (08:08→12:05)
[2023-04-27 08:52] LABS: Calcium 8.6 mg/dL (8.6-10.3); Creatinine, Serum 0.52 mg/dL (0.67-1.17); eGFR CKD-EPI 145.2 (>60)
[2023-04-27 09:05] LABS: Magnesium 1.7 mg/dL (1.9-2.7); Potassium 4.3 mmol/L (3.5-5.0)
[2023-04-27] MEDS: PAIN RELIEVING RUB (MENTHOL/SALICYLATE) 1 APPLIC TUBE TOPICAL PRN ×2 (09:50→14:51)
[2023-04-27 11:55] LABS: Calcium 8.4 mg/dL (8.6-10.3); Creatinine, Serum 0.57 mg/dL (0.67-1.17); Potassium 4.2 mmol/L (3.5-5.0); eGFR CKD-EPI 141.3 (>60)
[2023-04-27] MEDS: D5LR 20 MEQ KCL 1000 ml BAG 1,000 ML IV SCH ×2 (12:27→22:51)
[2023-04-27] MEDS ORDERED: Insulin Infusion 100unit/100mL 100 UNIT/100 ML BAG IV SCH (13:00)
[2023-04-27 16:50] LABS: Calcium 8.8 mg/dL (8.6-10.3); Creatinine, Serum 0.62 mg/dL (0.67-1.17); eGFR CKD-EPI 137.7 (>60)
[2023-04-27 17:37] LABS: Potassium, Whole Blood 3.9 mmol/L (3.4-4.5)
[2023-04-27 17:39] LABS: Potassium 3.9 mmol/L (3.5-5.0)
[2023-04-27 20:42] LABS: Calcium 9.1 mg/dL (8.6-10.3); Creatinine, Serum 0.59 mg/dL (0.67-1.17); Potassium 3.9 mmol/L (3.5-5.0); eGFR CKD-EPI 139.8 (>60)
[2023-04-27] MEDS ORDERED: Insulin LISPRO FOR INSULIN PUMP SUBCUT SCH (22:00)
[2023-04-28] MEDS ORDERED: Dextrose 50% Syringe 50 ml 25 GM/50 ML SYRINGE IV PUSH PRN ×3 (03:15→03:22)
[2023-04-28 05:17] LABS: Hematocrit 42.2 % (38-53); Hemoglobin 14.8 g/dL (13.2-16.3); Mean Corpuscular Hemoglobin 29.9 pg (27-33); Mean Corpuscular Volume 85.3 fL (80-97); Mean Platelet Volume 7.6 fL (7.5-11.2); Platelet Count 432 10^3/uL (150-450); Red Blood Count 4.94 10^6/uL (4.06-5.63); Red Cell Distribution Width 13.8 % (12-17); White Blood Count 9.8 10^3/uL (3.6-10.2)
[2023-04-28 06:00] LABS: Calcium 9.4 mg/dL (8.6-10.3); Creatinine, Serum 0.53 mg/dL (0.67-1.17); Magnesium 1.6 mg/dL (1.9-2.7); Potassium 3.8 mmol/L (3.5-5.0); eGFR CKD-EPI 144.4 (>60)
[2023-04-28] MEDS: Insulin GLARGINE 100 un/ml 10 ml VIAL SUBCUT SCH ×2 (06:12→08:12)
[2023-04-28] MEDS ORDERED: Magnesium Sulf 4 GM/100 ML IV 4,000 MG/100 ML BAG IVPB ONE (06:23)
[2023-04-28] MEDS ORDERED: KCL 20 MEQ/100 ML IVPREMIX 20 MEQ/100 ML BAG IV ONE (06:23)
[2023-04-28] MEDS ORDERED: Potassium Chlor 20 meq TAB.ER PO ONE (07:10)
[2023-04-28 08:31] VITALS: BP 146/98
[2023-04-28] MEDS: PAIN RELIEVING RUB (MENTHOL/SALICYLATE) 1 APPLIC TUBE TOPICAL PRN (08:40)
== END 2023-04-28 10:43 | disposition home or self-care (01) | DRG 813 ==
LOC: ED 05:22 → EDHOLD 07:43 → ICU 08:36
PROVIDERS: ADMIT Internal Medicine Critical Care Medicine; ATTEND Internal Medicine Critical Care Medicine

== ENCOUNTER 2023-06-04 07:20 | Observation (INO) ==
[2023-06-04] MEDS ORDERED: NS 0.9% 1000 ml BAG 2,000 ML IV ONE (07:29)
[2023-06-04] MEDS ORDERED: Ondansetron 4 mg VIAL 2 MG/ML 2 ml VIAL IV ONE (07:32)
[2023-06-04] MEDS ORDERED: Morphine 4 MG/ML VIAL (1 ml) IV ONE (07:32)
[2023-06-04 07:54] LABS: Hematocrit 46.2 % (38-53); Hemoglobin 15.4 g/dL (13.2-16.3); Mean Corpuscular Hemoglobin 29.8 pg (27-33); Mean Corpuscular Hgb Conc 33.3 g/dL (31-36); Mean Corpuscular Volume 89.3 fL (80-97); Mean Platelet Volume 7.7 fL (7.5-11.2); Platelet Count 501 10^3/uL (150-450); Red Blood Count 5.17 10^6/uL (4.06-5.63); Red Cell Distribution Width 13.3 % (12-17); White Blood Count 14.3 10^3/uL (3.6-10.2)
[2023-06-04 08:08] LABS: ALT 13 U/L (7-52); AST 12 U/L (13-39); Albumin 4.5 g/dL (3.2-5.2); Albumin/Globulin Ratio 1.4 (1-3); Alkaline Phosphatase 98 U/L (35-149); Blood Urea Nitrogen 22 mg/dL (6-24); C Reactive Protein < 1.00 mg/L (<8.01); Calcium 9.8 mg/dL (8.6-10.3); Chloride 93 mmol/L (101-111); Creatinine, Serum 1.01 mg/dL (0.67-1.17); Globulin 3.2 g/dL (2-4); Glucose 398 mg/dL (70-100); Potassium 3.5 mmol/L (3.5-5.0); Sodium 134 mmol/L (135-145); Total Protein 7.7 g/dL (6.4-8.9); eGFR CKD-EPI 107.2 (>60)
[2023-06-04 08:15] LABS: Anion Gap 30 mmol/L (2-16); CO2 Carbon Dioxide 11 mmol/L (22-32)
[2023-06-04] MEDS ORDERED: NORMOSOL-R pH 7.4 1000 mL BAG 1,000 ML IV ONE (08:23)
[2023-06-04] MEDS ORDERED: Dextrose 50% Syringe 50 ml 25 GM/50 ML SYRINGE IV PUSH PRN (08:23)
[2023-06-04] MEDS ORDERED: Lactated Ringers 1000 ml BAG 2,000 ML IV ONE (08:46)
[2023-06-04] MEDS ORDERED: NORMOSOL-R pH 7.4 1000 mL BAG 1,000 ML IV SCH (09:00)
[2023-06-04] MEDS ORDERED: Insulin Infusion 100unit/100mL 100 UNIT/100 ML BAG IV SCH (09:00)
[2023-06-04 09:08] LABS: Magnesium 1.9 mg/dL (1.9-2.7)
[2023-06-04 09:15] LABS: ABS Basophils 0.1 10^3/uL (0.0-0.1); ABS Eosinophils 0.1 10^3/uL (0.0-0.5); ABS Lymphocytes 5.2 10^3/uL (1.0-4.8); ABS Monocytes 0.5 10^3/uL (0.0-1.1); ABS Neutrophils 8.3 10^3/uL (1.5-7.6); ABS Nucleated RBC 0.01 10^3/ul; Eosinophil % 0.7 %; Lymphocyte % 36.5 %; Nucleated Red Blood Cells % 0.1 /100 WBC (0.0-0.4)
[2023-06-04 09:43] LABS: Urine Appearance Cloudy; Urine Bilirubin Negative (Negative); Urine Blood Negative (Negative); Urine Color Yellow; Urine Glucose 3+(>=500 mg/dL) (Negative); Urine Ketones 2+ (Negative); Urine Nitrite Negative (Negative); Urine Protein Negative (Negative); Urine Specific Gravity 1.027 (1.002-1.030); Urine Urobilinogen Negative (Negative)
[2023-06-04 09:46] LABS: Urine Bacteria 1+ (Absent); Urine Red Blood Cell 3+(>10/hpf) (Absent); Urine Squamous Epithelial Cell Present (Absent); Urine White Blood Cell Trace(0-5/hpf) (Absent)
[2023-06-04 09:54] LABS: Urine Benzodiazepine Screen None Detected (None Detect); Urine Buprenorphine Screen None Detected (None Detect); Urine Cannabinoids Screen Presumptive Positive (None Detect); Urine Fentanyl Screen None Detected (None Detect); Urine Hydrocodone Screen None Detected (None Detect); Urine Opiates Screen Presumptive Positive (None Detect)
[2023-06-04] MEDS: KCL 20 MEQ/100 ML IVPREMIX 20 MEQ/100 ML BAG IV SCH ×2 (10:23→12:37)
[2023-06-04] MEDS ORDERED: D5LR 1000 ml BAG 1,000 ML IV SCH (12:00)
[2023-06-04 13:08] LABS: CO2 Carbon Dioxide 16 mmol/L (22-32); Calcium 8.9 mg/dL (8.6-10.3); Chloride 105 mmol/L (101-111); Magnesium 1.7 mg/dL (1.9-2.7); Sodium 137 mmol/L (135-145)
[2023-06-04 13:14] LABS: Blood Urea Nitrogen 18 mg/dL (6-24); Creatinine, Serum 0.75 mg/dL (0.67-1.17); Glucose 193 mg/dL (70-100)
[2023-06-04 13:18] LABS: Anion Gap 16 mmol/L (2-16)
[2023-06-04] MEDS: D5LR 1000 ml BAG 1,000 ML IV SCH ×2 (13:32→18:26)
[2023-06-04] MEDS ORDERED: PAIN RELIEVING RUB (MENTHOL/SALICYLATE) 1 APPLIC TUBE TOPICAL PRN (16:18)
[2023-06-04 16:39] LABS: Calcium 7.6 mg/dL (8.6-10.3); Creatinine, Serum 0.58 mg/dL (0.67-1.17); Magnesium 1.1 mg/dL (1.9-2.7); Potassium 3.8 mmol/L (3.5-5.0); eGFR CKD-EPI 140.5 (>60)
[2023-06-04] MEDS: Acetaminophen IV 1 GM/100ML 1,000 MG/100 ML BAG IV PRN (16:51)
[2023-06-04] MEDS ORDERED: Insulin GLARGINE 100 un/ml 10 ml VIAL SUBCUT SCH (21:00)
[2023-06-04 21:18] LABS: Calcium 8.1 mg/dL (8.6-10.3); Creatinine, Serum 0.67 mg/dL (0.67-1.17); Magnesium 1.4 mg/dL (1.9-2.7); Potassium 3.6 mmol/L (3.5-5.0); eGFR CKD-EPI 134.5 (>60)
[2023-06-05] MEDS ORDERED: Magnesium Sulfate IV 3 GM in NS 0.9% 100 ml BAG 100 ML IVPB ONE (04:24)
[2023-06-05 04:40] LABS: ABS Basophils 0.1 10^3/uL (0.0-0.1); ABS Eosinophils 0.1 10^3/uL (0.0-0.5); ABS Monocytes 0.4 10^3/uL (0.0-1.1); ABS Neutrophils 6.1 10^3/uL (1.5-7.6); Hematocrit 39.4 % (38-53); Hemoglobin 13.8 g/dL (13.2-16.3); Lymphocyte % 31.3 %; Mean Corpuscular Hemoglobin 30.3 pg (27-33); Mean Corpuscular Hgb Conc 35.1 g/dL (31-36); Mean Corpuscular Volume 86.3 fL (80-97); Mean Platelet Volume 6.8 fL (7.5-11.2); Platelet Count 412 10^3/uL (150-450); Red Blood Count 4.57 10^6/uL (4.06-5.63); Red Cell Distribution Width 13.2 % (12-17); White Blood Count 9.7 10^3/uL (3.6-10.2)
[2023-06-05 04:59] LABS: Calcium 8.7 mg/dL (8.6-10.3); Creatinine, Serum 0.62 mg/dL (0.67-1.17); Magnesium 1.5 mg/dL (1.9-2.7); Potassium 3.5 mmol/L (3.5-5.0); eGFR CKD-EPI 137.7 (>60)
[2023-06-05] MEDS: Acetaminophen IV 1 GM/100ML 1,000 MG/100 ML BAG IV PRN (08:07)
[2023-06-05] MEDS ORDERED: Lidocaine PATCH 5% PATCH TRANSDERM SCH (09:00)
[2023-06-05] MEDS ORDERED: Potassium Chlor 20 meq TAB.ER PO ONE (09:45)
[2023-06-05 12:07] VITALS: BP 168/108
== END 2023-06-05 15:15 | disposition home or self-care (01) ==
LOC: ED 07:20 → EDHOLD 08:34 → INTOOBSV 08:34 → ICU 09:08
PROVIDERS: ADMIT Surgery Surgical Critical Care; ATTEND Surgery Surgical Critical Care